=== PATIENT | female | born 1970 | race African-American/Black ===

== ENCOUNTER 2018-09-02 07:20 | Emergency (ER) | payer BC ==
[2018-09-02] MEDS ORDERED: Dexamethasone 10 MG/ML VIAL ONE (09:05)
--- NOTE | 2018-09-02 09:22 | RAD ---
RADIOGRAPH CERVICAL SPINE 4 VIEWS: DATE: 09/02/2018 HISTORY: 48-year-old female with nontraumatic cervicalgia. TECHNIQUE: Lateral view. Swimmer's view. AP view. Open-mouth view.. FINDINGS: The levels inferior to the inferior endplate of C6 are obscured by the shoulders on the lateral view. On the swimmer's view, C7 is partially visualized. C7-T1 junction is poorly visualized. The following statements regarding only the levels visible. Alignment is normal. Vertebral body heights a nd disc spaces are maintained. There is no prevertebral soft tissue swelling. There is no fracture, significant osteophytes, or any other focal osseous abnormality. IMPRESSION: All levels superior to C7 demonstrate no significant pathology.
== END 2018-09-02 09:43 | disposition home or self-care (01) ==
LOC: ERS 07:20
DX: G62.9 Polyneuropathy, unspecified (principal); F41.9 Anxiety disorder, unspecified
CPT/HCPCS: 36416; 72040; 96372; J1100

== ENCOUNTER 2018-11-04 05:30 | Emergency (ER) | payer BC ==
--- NOTE | 2018-11-04 07:36 | RAD ---
EXAM: XR Knee Rt 4 View STANDARD PROVIDED CLINICAL HISTORY: Pain FINDINGS: There is no evidence for fracture or other acute osseous abnormality. Alignment appears anatomic. Ines nt spaces appear preserved. IMPRESSION: No evidence for an acute osseous abnormality. If there is persistent clinical concern, conservative m anagement and follow-up imaging advised.
== END 2018-11-04 06:35 | disposition home or self-care (01) ==
LOC: ERS 05:30
DX: M71.561 Other bursitis, not elsewhere classified, right knee (principal); M25.561 Pain in right knee; E78.5 Hyperlipidemia, unspecified; I10 Essential (primary) hypertension; M10.9 Gout, unspecified; F41.9 Anxiety disorder, unspecified

== ENCOUNTER 2019-01-01 10:22 | Emergency (ER) | payer BC | END 2019-01-01 10:54 | disposition home or self-care (01) | LOC: EDBD 10:22 → ERS 10:22 | DX: G89.29 Other chronic pain (principal); M25.561 Pain in right knee; R20.2 Paresthesia of skin; I10 Essential (primary) hypertension; M10.9 Gout, unspecified; E78.5 Hyperlipidemia, unspecified; J45.909 Unspecified asthma, uncomplicated; F41.9 Anxiety disorder, unspecified | CPT/HCPCS: 99281 ==

== ENCOUNTER 2019-03-19 17:32 | Emergency (ER) | payer BC ==
[2019-03-19 19:09] LABS: Bacteria/HPF 3+ HPF (None Seen); Bilirubin Negative (Negative); Blood, Urine Trace (Negative); Clarity Turbid (Clear); Glucose, Urine (Dipstick) Normal (Negative); Leukocyte 500 Leu/uL (Negative); Nitrite Negative (Negative); Protein, Urine (Dipstick) 20 mg/dL (Neg-Trace); RBC/HPF 0-3 HPF (0-3); Urobilinogen Normal mg/dL (Less than 2); WBC/HPF 21-50 HPF (0-3)
[2019-03-19 19:37] LABS: Hemoglobin 13.4 g/dL (12.0-16.0); Mean Corpuscular HGB CONC 31.3 g/dL (32.0-36.0); Mean Corpuscular Hemoglobin 24.6 pg (27.0-31.0); Mean Corpuscular Volume 78.7 fL (78.0-98.0); Mean Platelet Volume 10.6 fL (7.4-10.4); Platelet Count 139 thou/uL (130-400); RBC Distribution Width 13.8 % (11.5-14.5); Red Blood Cell (RBC) Count 5.44 mill/uL (4.20-5.40); White Blood Cell (WBC) Count 3.9 thou/uL (4.8-10.8)
[2019-03-19 20:03] LABS: Band 16 % (5-11); Hypochromia SLIGHT = 6-15 cells (100X) (0-5/hpf); Large Platelets SLIGHT; Lymphocytes 28 % (21-51); MDiff Complete? YES; Monocytes 8 % (0-10); Neutrophil 43 % (42-75); Platelet Morphology Comment Appears Adequate; Reactive Lymphocytes 5 % (0-10)
[2019-03-19 20:08] LABS: ALT (SGPT) 19 U/L (8-55); AST (SGOT) 26 U/L (5-34); Albumin 4.4 g/dL (3.5-5.0); Alkaline Phosphatase 68 U/L (40-110); Anion Gap 17 mmol/L (10-20); BUN (Urea Nitrogen) 15 mg/dL (7.0-18.7); Bilirubin, Total 1.2 mg/dL (0.2-1.2); Calc. Creatinine Clearance 0 mL/min (70-130); Calcium 9.4 mg/dL (7.8-10.44); Carbon Dioxide 25 mmol/L (22-29); Chloride 102 mmol/L (98-107); Estimated GFR-MDRD 78; Globulin 3.5 g/dL (2.4-3.5); Glucose 85 mg/dL (70-105); Potassium 3.7 mmol/L (3.5-5.1); Protein, Total 7.9 g/dL (6.0-8.3); Sodium 140 mmol/L (136-145)
[2019-03-19] MEDS ORDERED: Morphine 4 MG/ML VIAL ONE (20:44)
[2019-03-19] MEDS ORDERED: cefTRIAXone\\ROCEPHIN 1 GM VIAL ONE (20:47)
[2019-03-19] MEDS ORDERED: Ondansetron PF 4 MG/2 ML Vial ONE (20:50)
[2019-03-19] MEDS ORDERED: Ondansetron ODT 4 MG TAB ONE ×2 (21:30→21:31)
[2019-03-19 21:40] LABS: Pregnancy Test - Urine (BHCG) Negative (Negative); Pregu Control Background? CLEAR/WHITE (CLR/WHITE); Pregu Control Bar Appear? YES (CONTROL BAR); Specific Gravity 1.027 (1.002-1.036)
== END 2019-03-19 21:42 | disposition home or self-care (01) ==
LOC: ERS 17:32
DX: N39.0 Urinary tract infection, site not specified (principal); J45.909 Unspecified asthma, uncomplicated; E78.5 Hyperlipidemia, unspecified; I10 Essential (primary) hypertension; M10.9 Gout, unspecified; F41.9 Anxiety disorder, unspecified; Z79.899 Other long term (current) drug therapy
CPT/HCPCS: 80053; 81003; 81015; 81025; 85025; 87086; 99284; J0696; J2270; J2405; Q0162